=== PATIENT | male | born 1970 | race Two or more races ===

== ENCOUNTER 2023-06-07 05:30 | Day surgery (SDC) | payer OTHER ==
[~2023-06-07 05:30] MED LIST: PROTONIX40 MG PO
[2023-06-07] MEDS ORDERED: DIBUCAINE 30 GM TUBE ONE (06:50)
[2023-06-07] MEDS ORDERED: HEMOSTATIC MATRIX 1 KIT KIT TOP ONE ×2 (06:50→07:00)
[2023-06-07] MEDS ORDERED: POVIDONE-IODINE 118 ML BOTT TOP ONE ×2 (06:50→07:00)
[2023-06-07] MEDS ORDERED: BUPIVACAINE HCL/PF 0.5% 30ML ML ONE (06:50)
[2023-06-07] MEDS ORDERED: LIDOCAINE HCL 1%/Epi 20ML VIAL IJ ONE ×2 (06:50→07:00)
[2023-06-07] MEDS ORDERED: METRONIDAZOLE/SODIUM CHLORIDE 500 MG/100 ML PIGGYBACK IV ONE ×2 (06:57→08:00)
[2023-06-07] MEDS ORDERED: CEFTRIAXONE SODIUM 2,000 MG VIAL ONE (06:57)
[2023-06-07] MEDS ORDERED: DIBUCAINE 15 GM OINT..GM. TUBE RECTAL ONE (07:00)
[2023-06-07] MEDS ORDERED: BUPIVACAINE HCL/PF 0.25% 30ML VIAL InF ONE (07:00)
[2023-06-07] MEDS ORDERED: CEFTRIAXONE SODIUM 2,000 MG VIAL IV ONE (08:00)
[2023-06-07] MEDS ORDERED: PERCOCET 5-3251 EACH PO (09:05)
[2023-06-07] MEDS ORDERED: RECTICARE30 GM TOP (09:06)
== END 2023-06-07 12:20 | disposition home or self-care (01) ==
LOC: CIR.AMB 05:30
PROVIDERS: ATTEND Surgery
DX: K62.0 Anal polyp (principal); K62.89 Other specified diseases of anus and rectum; Z20.822 Contact with and (suspected) exposure to COVID-19